=== PATIENT | female | born 1950 | race Caucasian/White ===

== ENCOUNTER → 2016-12-16 | Outpatient (CLI) | payer OTHER ==
[~2016-12-16] MED LIST: ASPI-621 PO; AZIT500T4 PO; CEFD300C2 PO; ESTR1.25 PO; GUAI600T22 PO; INSU100C5 SQ-INSULIN; INSU100V8 SQ; LOSA25TA2 PO; OMEP-110 PO; RIZA5TAB2 PO; TACR1CAP4 PO; TRAZ100T15 PO; URSO250T9 PO
== END | disposition home or self-care (01) ==
LOC: CFH 07:40 → MERGE 08:30
PROVIDERS: ATTEND Internal Medicine
DX: K83.1 Obstruction of bile duct (principal); R16.1 Splenomegaly, not elsewhere classified; J90 Pleural effusion, not elsewhere classified; Z90.49 Acquired absence of other specified parts of digestive tract
CPT/HCPCS: 74181